=== PATIENT | female | born 2000 | race African-American/Black ===

== ENCOUNTER 2022-11-03 14:33 | Outpatient (CLI) | payer MEDICAID, OTHER | END 2022-11-03 14:34 | disposition home or self-care (01) | LOC: CSHULT 14:33 | PROVIDERS: ATTEND Family Medicine | DX: O09.892 Supervision of other high risk pregnancies, second trimester (principal); Z3A.28 28 weeks gestation of pregnancy | CPT/HCPCS: 76805 ==

== ENCOUNTER 2023-01-02 16:51 | Day surgery (SDC) | payer OTHER ==
[2023-01-02] MEDS ORDERED: hydrALAZINE 20 MG/ML VIAL SLOW IVP PRN (18:38)
[2023-01-02 19:14] LABS: Bilirubin Neg (Negative); Blood, Urine Negative (Negative); Clarity Clear (Clear); Glucose, Urine (Dipstick) Normal (Negative); Ketone, Urine Negative (Negative); Leukocyte 25 (Negative); Nitrite Negative (Negative); Protein, Urine (Dipstick) Negative (Neg-Trace); Specific Gravity, Urine 1.015 (1.005-1.030)
[2023-01-02 19:22] LABS: Bacteria/HPF Rare-Few HPF (None Seen); CAUTI Indications for Culture Pregnancy; Mucous/LPF 1+ LPF (<2+); RBC/HPF 0-3 HPF (0-3); Squamous Epithelial 0-3 HPF (0-3); WBC/HPF 0-3 HPF (0-3)
[2023-01-02 19:23] LABS: Urine Culture Reflex Yes Yes
== END 2023-01-02 19:17 | disposition home or self-care (01) ==
LOC: CSHLD/OP 16:51
PROVIDERS: ATTEND Family Medicine
DX: O47.03 False labor before 37 completed weeks of gestation, third trimester (principal); O99.891 Other specified diseases and conditions complicating pregnancy; M54.50 Low back pain, unspecified; R30.0 Dysuria; Z3A.36 36 weeks gestation of pregnancy
CPT/HCPCS: 81001; 87086; 99282

== ENCOUNTER 2023-01-12 16:50 | Day surgery (SDC) | payer OTHER | END 2023-01-12 18:53 | disposition home or self-care (01) | LOC: CSHLD/OP 16:50 | PROVIDERS: ATTEND Family Medicine | DX: Z36.89 Encounter for other specified antenatal screening (principal) | CPT/HCPCS: 59025; 76819 ==

== ENCOUNTER 2025-04-23 18:00 | Inpatient (IN) | payer MEDICAID ==
[2025-04-23 20:54] VITALS: BMI 30.3
[2025-04-23] MEDS ORDERED: HYDROcodone/Acetaminophen 5/325 mg Tablet PO PRN (21:18)
[2025-04-23] MEDS ORDERED: Acetaminophen 500 MG TAB PO PRN (21:18)
[2025-04-23] MEDS ORDERED: Lidocaine 1% (PF) 30 ML VIAL SC PRN (21:18)
[2025-04-23] MEDS ORDERED: Diphenoxylate HCl/Atropine Tablet PO PRN (21:18)
[2025-04-23] MEDS ORDERED: hydrALAZINE 20 MG/ML VIAL SLOW IVP PRN (21:18)
[2025-04-23] MEDS ORDERED: Tranexamic Acid 1,000 MG/10 ML VIAL IVP PRN (21:18)
[2025-04-23] MEDS ORDERED: Ondansetron PF 4 MG/2 ML Vial IVP PRN (21:18)
[2025-04-23] MEDS ORDERED: Carboprost 250 MCG/ML AMP IM PRN (21:18)
[2025-04-23] MEDS ORDERED: Methylergonovine 0.2 MG/ML VIAL IM PRN (21:18)
[2025-04-23] MEDS ORDERED: Oxytocin 30 units/NS 500 ML 500 ML IV SCH (21:30)
[2025-04-23 22:30] LABS: Hematocrit 29.0 % (34.9-44.5); Hemoglobin 9.3 g/dL (12.0-15.5); Mean Corpuscular Hemoglobin 28.2 pg (27.0-33.0); Mean Corpuscular Volume 87.9 fL (81.6-98.3); Platelet Count 261 10x3/uL (150-450); Red Blood Cell (RBC) Count 3.30 10x6/uL (3.90-5.03); White Blood Cell (WBC) Count 10.06 10x3/uL (3.5-10.5)
[2025-04-23 23:08] LABS: Hep B Surf Ag - L&D Non-Reactive S/CO (NonReactive)
[2025-04-23 23:10] LABS: Syphilis Antibody Index 0.05 S/CO (<1.00 Non-Reactive)
[2025-04-24] MEDS: fentaNYL/Ropivacaine Epidural 100 ML ONE (04:58)
[2025-04-24] MEDS ORDERED: diphenhydrAMINE 50 MG/ML VIAL IVP PRN (05:20)
[2025-04-24] MEDS ORDERED: Ondansetron PF 4 MG/2 ML Vial IVP PRN ×2 (05:20→17:31)
[2025-04-24] MEDS ORDERED: Acetaminophen 325 MG TAB PO PRN (05:20)
[2025-04-24] MEDS ORDERED: Communication Order-Pharmacy FS SCH (05:30)
[2025-04-24] MEDS ORDERED: fentaNYL 2 mcg/Ropivacaine 0.2% Epidural 100 ML CADD EPIDURAL SCH (05:30)
[2025-04-24] MEDS ORDERED: Bupivacaine 0.25% HCL 30 ML VIAL ONE (08:00)
[2025-04-24] MEDS: Oxytocin 30 units/NS 500 ML 500 ML IV SCH (09:17)
[2025-04-24] MEDS: Ibuprofen 800 MG TAB PO PRN (14:29)
[2025-04-24] MEDS ORDERED: Preparation H Ointment 28 GM TUBE PR PRN (17:31)
[2025-04-24] MEDS ORDERED: Benzocaine-Menthol 82.5 ML CAN TOP PRN (17:31)
[2025-04-24] MEDS ORDERED: Lanolin Ointment 7 GM TUBE TOP PRN (17:31)
[2025-04-24] MEDS ORDERED: diphenhydrAMINE 25 MG CAP PO PRN (17:31)
[2025-04-24] MEDS ORDERED: Milk Of Magnesia 30 ML UDCUP PO PRN (17:31)
[2025-04-24] MEDS ORDERED: Bisacodyl 10 MG SUPP PR PRN (17:31)
[2025-04-24] MEDS ORDERED: hydrALAZINE 20 MG/ML VIAL SLOW IVP PRN (17:31)
[2025-04-24] MEDS: HYDROcodone/Acetaminophen 5/325 mg Tablet PO SCH (17:47)
[2025-04-24] MEDS: Ferrous Sulfate 325 MG TAB PO SCH (21:00)
[2025-04-24] MEDS: Ibuprofen 800 MG TAB PO SCH (21:00)
[2025-04-24] MEDS: HYDROcodone/Acetaminophen 5/325 mg Tablet PO PRN (23:14)
[2025-04-25 07:16] VITALS: BP 127/75; TEMP 98.1
[2025-04-25] MEDS: Ferrous Sulfate 325 MG TAB PO SCH (09:19)
== END 2025-04-25 14:05 | disposition home or self-care (01) | DRG 807 ==
LOC: CSHLD 20:16 → CSHPP 04-24 19:45
PROVIDERS: ADMIT Family Medicine; ATTEND Family Medicine
PROC: 10907ZC Drainage of Amniotic Fluid, Therapeutic from Products of Conception, Via Natural or Artificial Opening (ICD-10-PCS; 2025-04-23)
PROC: 4A1HXCZ Monitoring of Products of Conception, Cardiac Rate, External Approach (ICD-10-PCS; 2025-04-23)
PROC: 10E0XZZ Delivery of Products of Conception, External Approach (ICD-10-PCS; principal; 2025-04-24)
PROC: 0KQM0ZZ Repair Perineum Muscle, Open Approach (ICD-10-PCS; 2025-04-24)
DX: O70.1 Second degree perineal laceration during delivery (principal); Z37.0 Single live birth; Z3A.40 40 weeks gestation of pregnancy
CPT/HCPCS: 51702; 85027; 86780; 86850; 86900; 86901; 87340; J0665; J2590; J3105; J7120